=== PATIENT | female | born 1990 | race Caucasian/White ===

== ENCOUNTER 2025-04-19 15:22 | Outpatient (CLI) | payer BC, OTHER, SELFPAY ==
--- NOTE | ~2025-04-19 | CT_ITS ---
EXAMINATION: CT sinus wo con DATE: 04/19/2025 15:37 INDICATION: Chronic sinusitis TECHNIQUE: Computed tomography (CT) of the paranasal sinuses was performed without intravenous contrast. The dose-length product was 277.35 mGy-cm. Automated exposure control and iterative reconstruction technique were employed. COMPARISON: None FINDINGS: There is mild mucosal thickening of left maxillary sinus. Ostiomeatal units are patent. Leftward nasal septal deviation. No air-fluid levels. No mucoperiosteal reaction. Mastoids are pneumatized. IMPRESSION: 1. Mild left maxillary sinus disease. Reviewed, dictated and finalized at location I. L COORDINATOR
== END 2025-04-19 15:23 | disposition home or self-care (01) ==
LOC: MICIMG 15:25
PROVIDERS: PCP Otolaryngology; Visit Provider Otolaryngology
DX: J32.9 Chronic sinusitis, unspecified (principal)
CPT/HCPCS: 70486